=== PATIENT | female | born 1985 | race Caucasian/White ===

== ENCOUNTER 2017-01-13 19:19 | Emergency (ER) | payer OTHER ==
[2017-01-13] MEDS ORDERED: IPRATROPIUM-ALBUTEROL 3 ML NEB INHALATION STA (19:52)
[2017-01-13] MEDS ORDERED: methylPREDNISolone SOD SUCCI 125 MG/2 ML VIAL IM STA (19:52)
--- NOTE | 2017-01-13 20:13 | ED ---
SOB HPI - General Chief Complaint: Shortness of Breath Stated Complaint: ALEX Time Seen by Provider: 01/13/17 19:31 Source: patient, RN notes reviewed, old records reviewed Mode of arrival: ambulatory Limitations: no limitations - History of Present Illness Initial Comments: Patient is a 31-year-old female chief complaint of 1 week of cough and congestion. Patient reports that she's complete the Medrol Dosepak, Z-Joseph as well as an inhaler. She reports this is not helping of shortness of breath and cough. She states that she's had a productive cough. Patient denies any fever or chills. Patient denies any abdominal pain, she denies any chest pain. - Related Data Home Medications Medication Instructions Recorded Confirmed Medroxyprogesterone Acetate 150 mg IM Q90D 03/02/15 01/13/17 [Depo-Provera] Albuterol Inhaler [Ventolin Hfa 1 - 2 puff INHALATION RT-Q6H PRN 01/13/17 Inhaler] Dextroamphetamine Sulfate 15 mg PO BID 01/13/17 01/13/17 [Dexedrine] methylPREDNISolone Dose Pack See Taper PO DAILY 01/13/17 01/13/17 [Medrol Dose Pack] Previous Rx's Medication Instructions Recorded Levofloxacin [Levaquin] 750 mg PO DAILY #5 tab 01/13/17 Promethazine/Dextromethorphan 5 ml PO TID #120 ml 01/13/17 [Phenergan DM Syrup] predniSONE 50 mg PO DAILY #7 tab 01/13/17 Allergies Allergy/AdvReac Type Severity Reaction Status Date / Time amoxicillin Allergy Anaphylaxis Verified 01/13/17 19:40 Review of Systems ROS Statement: Those systems with pertinent positive or pertinent negative responses have been documented in the HPI. ROS Other: All systems not noted in ROS Statement are negative. Past Medical History Past Medical History: No Reported History History of Any Multi-Drug Resistant Organisms: None Reported Past Surgical History: Adenoidectomy, Ear Surgery, Tonsillectomy Past Psychological History: No Psychological Hx Reported Smoking Status: Former smoker Past Alcohol Use History: None Reported Past Drug Use History: None Reported General Exam - General Exam Comments Initial Comments: Well-appearing 31-year-old female. No distress. Limitations: no limitations General appearance: alert, in no apparent distress Head exam: Present: atraumatic, normocephalic, normal inspection Eye exam: Present: normal appearance, PERRL, EOMI. Absent: scleral icterus, conjunctival injection, periorbital swelling ENT exam: Present: normal exam, mucous membranes moist Neck exam: Present: normal inspection. Absent: tenderness, meningismus, lymphadenopathy Respiratory exam: Present: normal lung sounds bilaterally. Absent: respiratory distress, wheezes, rales, rhonchi, stridor Cardiovascular Exam: Present: regular rate, normal rhythm, normal heart sounds. Absent: systolic murmur, diastolic murmur, rubs, gallop, clicks GI/Abdominal exam: Present: soft, normal bowel sounds. Absent: distended, tenderness, guarding, rebound, rigid Extremities exam: Present: normal inspection, full ROM, normal capillary refill. Absent: tenderness, pedal edema, joint swelling, calf tenderness Back exam: Present: normal inspection Neurological exam: Present: alert, oriented X3, CN II-XII intact Psychiatric exam: Present: normal affect, normal mood Skin exam: Present: warm, dry, intact, normal color. Absent: rash Course Vital Signs 01/13/17 01/13/17 01/13/17 19:23 20:01 20:14 Temperature 98.4 F Pulse Rate 106 H 100 100 Respiratory 20 Rate Blood Pressure 158/94 O2 Sat by Pulse 96 Oximetry 01/13/17 20:54 Temperature 97.9 F Pulse Rate 92 Respiratory 18 Rate Blood Pressure 135/81 O2 Sat by Pulse 100 Oximetry Medical Decision Making - Medical Decision Making 31 year old female with cough and shortness of breath. PAtient reports that it is a productive cough.Xray is negative. PAtient reports improvement after douneb. Patient will be discharged with steroids and levaquin. Discussed follow up with PCP. Patient agrees with treatment plan and will comply. Disposition Clinical Impression: Shortness of breath, Cough Disposition: HOME SELF-CARE Condition: Good Instructions: Acute Bronchitis (ED) Additional Instructions: Patient is to rest, increase fluids. Follow-up with primary care provider within the next 2-3 days. Complete steroid prescription to use albuterol inhaler. Return to the emergency department if any alarming signs or symptoms occur. Prescriptions: Levofloxacin [Levaquin] 750 mg PO DAILY #5 tab Promethazine/Dextromethorphan [Phenergan DM Syrup] 5 ml PO TID #120 ml predniSONE 50 mg PO DAILY #7 tab Referrals: Milagros Catalan MD [Primary Care Provider] - 1-2 days Time of Disposition: 20:50
--- NOTE | 2017-01-13 20:39 | XR ---
EXAMINATION TYPE: XR chest 2V DATE OF EXAM: 01/13/2017 8:27 PM COMPARISON: NONE INDICATION: Shortness of breath, persistent cough x1 week TECHNIQUE: 2 view chest FINDINGS: The heart size is normal. The pulmonary vasculature is normal. The lungs are clear. IMPRESSION: 1. No acute pulmonary process.
[2017-01-13 20:56] VITALS: BP 135/81; PULSE 92; RESP 18; TEMP 97.9
== END 2017-01-13 21:04 | disposition home or self-care (01) ==
LOC: EC 19:19
DX: R06.02 Shortness of breath (principal); R05 Cough; R09.81 Nasal congestion; Z87.891 Personal history of nicotine dependence; Z79.899 Other long term (current) drug therapy; Z88.0 Allergy status to penicillin
CPT/HCPCS: 94640; 71020; 99285; 96372; J2930

== ENCOUNTER → 2017-03-02 | Outpatient (CLI) | payer OTHER ==
--- NOTE | 2017-03-03 08:10 | ECHOF ---
Referral Reason:I27.0 Pulmonary Hypertension MEASUREMENTS -------- HEIGHT: 162.6 cm WEIGHT: 79.4 kg BP: 153/94 RVIDd: 2.8 cm (< 3.3) IVSd: 1.3 cm (0.6 - 1.1) LVIDd: 3.9 cm (3.9 - 5.3) LVPWd: 1.1 cm (0.6 - 1.1) IVSs: 1.5 cm LVIDs: 2.3 cm LVPWs: 1.4 cm LAESV Index (A-L): 18.42 ml/m Ao Diam: 3.0 cm (2.0 - 3.7) AV Cusp: 1.2 cm (1.5 - 2.6) LA Diam: 2.3 cm (2.7 - 3.8) MV EXCURSION: 20.282 mm (> 18.000) MV EF SLOPE: 76 mm/s (70 - 150) EPSS: 0.6 cm MV E Francisco: 0.95 m/s MV DecT: 277 ms MV A Francisco: 0.67 m/s MV E/A Ratio: 1.42 RAP: 5.00 mmHg RVSP: 10.74 mmHg FINDINGS -------- Resting tachycardia (HR>100bpm). This was a technically adequate study. Pt. Very Sob There is borderline concentric left ventricular hypertrophy. Overall left ventricular systolic function is normal with, an EF between 60 - 65 %. The right ventricle is normal in size and function. Normal LA size by volume 22+/-6 ml/m2. The right atrium is normal in size. The aortic valve is trileaflet, and appears structurally normal. No aortic stenosis or regurgitation. The mitral valve leaflets are mildly thickened. There is trace mitral regurgitation. Trace tricuspid regurgitation present. There is no evidence of pulmonary hypertension. The right ventricular systolic pressure, as measured by Doppler, is 10.74mmHg. The pulmonic valve was not well visualized. The aortic root size is normal. Normal inferior vena cava with normal inspiratory collapse consistent with estimated right atrial pressure of 5 mmHg. The pericardium is normal. There is no pericardial effusion. CONCLUSIONS -------- 1. Resting tachycardia (HR>100bpm). 2. The right ventricular systolic pressure, as measured by Doppler, is 10.74mmHg. 3. The pulmonic valve was not well visualized. 4. The aortic root size is normal. 5. There is no pericardial effusion. 6. Pt. Very Sob 7. There is borderline concentric left ventricular hypertrophy. 8. Overall left ventricular systolic function is normal with, an EF between 60 - 65 %. 9. Normal LA size by volume 22+/-6 ml/m2. 10. The aortic valve is trileaflet, and appears structurally normal. No aortic stenosis or regurgitation. 11. There is trace mitral regurgitation. 12. Trace tricuspid regurgitation present. 13. There is no evidence of pulmonary hypertension. CONTENT DESIGNER: Kenney Arnold RDCS
== END | disposition home or self-care (01) ==
LOC: RADECHMAIN 15:39
PROVIDERS: ATTEND Internal Medicine Sleep Medicine
DX: I08.1 Rheumatic disorders of both mitral and tricuspid valves (principal); R00.0 Tachycardia, unspecified
CPT/HCPCS: 93306

== ENCOUNTER 2017-03-17 23:57 | Emergency (ER) | payer OTHER ==
[2017-03-18] MEDS ORDERED: SODIUM CHLORIDE 0.9% 1,000 ML IV STA (00:39)
[2017-03-18] MEDS ORDERED: IPRATROPIUM-ALBUTEROL 3 ML NEB INHALATION STA (00:39)
[2017-03-18] MEDS ORDERED: methylPREDNISolone SOD SUCCI 125 MG/2 ML VIAL IV STA ×2 (00:39→03:31)
[2017-03-18 01:27] LABS: Basophils % (A) 0 %; CH 33.2; CHCM 34.2; Eosinophils # (A) 0.1 k/uL (0-0.7); Eosinophils % (A) 1 %; HCT 43.2 % (34.0-46.0); HGB 14.3 gm/dL (11.4-16.0); Luc # (Auto) 0.18; Luc % (Auto) 1; Lymphocytes # (A) 3.6 k/uL (1.0-4.8); Lymphocytes % (A) 21 %; MCH 32.2 pg (25.0-35.0); MCV 97.7 fL (80.0-100.0); Mean Platelet Volume 7.2; Monocytes # (A) 0.5 k/uL (0-1.0); Monocytes % (A) 3 %; Neutrophils # (A) 13.2 k/uL (1.3-7.7); Neutrophils % (A) 75 %; RBC 4.42 m/uL (3.80-5.40); RDW 14.7 % (11.5-15.5); WBC 17.6 k/uL (3.8-10.6); WBC (Perox) 17.55
[2017-03-18 01:36] LABS: ALT 45 U/L (9-52); AST 21 U/L (14-36); Alkaline Phosphatase 58 U/L (38-126); Anion Gap 12 mmol/L; Blood Urea Nitrogen 15 mg/dL (7-17); Carbon Dioxide 20 mmol/L (22-30); Chloride 112 mmol/L (98-107); Glucose 104 mg/dL (74-99); Magnesium 2.1 mg/dL (1.6-2.3); Non-African American GFR(MDRD) >60 (>60 ml/min/1.73 sqM); Potassium 3.7 mmol/L (3.5-5.1); Sodium 144 mmol/L (137-145); Total Bilirubin 0.5 mg/dL (0.2-1.3); Total Protein 5.9 g/dL (6.3-8.2)
[2017-03-18 01:38] LABS: Partial Thromboplastin Time 21.4 sec (22.0-30.0)
--- NOTE | 2017-03-18 01:42 | ED ---
SOB HPI - General Chief Complaint: Shortness of Breath Stated Complaint: ALEX Time Seen by Provider: 03/18/17 00:33 Source: patient, RN notes reviewed, old records reviewed Mode of arrival: ambulatory Limitations: no limitations - History of Present Illness Initial Comments: Physical is a 32-year-old female presenting to emergency Department chief complaint of 3 months of shortness of breath. Patient reports she saw networking administrator and they told her she has severe inflammation on her lungs. She reports that the horse was to send her home with medications however they did not have the prescription sent. Patient reports that she uses Dulera inhaler, albuterol inhaler, and was prescribed to take 20 mg of prednisone for the next month. Patient ports that she has not been able to start. Patient denies any recent fever or chills. She reports that sometimes she coughs so severe that she did she pulled muscles in her lungs. Patient denies any abdominal pain or vomiting. She reports that sometimes she works that she becomes so short of breath. She reports she has a VQ scan scheduled on Sunday. Patient reports that sometimes she'll track her heart rate at work and it goes up to 1:30 to 160. - Related Data Home Medications Medication Instructions Recorded Confirmed Medroxyprogesterone Acetate 150 mg IM Q90D 03/02/15 01/13/17 [Depo-Provera] Albuterol Inhaler [Ventolin Hfa 1 - 2 puff INHALATION RT-Q6H PRN 01/13/17 Inhaler] Dextroamphetamine Sulfate 15 mg PO BID 01/13/17 01/13/17 [Dexedrine] methylPREDNISolone Dose Pack See Taper PO DAILY 01/13/17 01/13/17 [Medrol Dose Pack] Previous Rx's Medication Instructions Recorded Levofloxacin [Levaquin] 750 mg PO DAILY #5 tab 01/13/17 Promethazine/Dextromethorphan 5 ml PO TID #120 ml 01/13/17 [Phenergan DM Syrup] predniSONE 50 mg PO DAILY #7 tab 01/13/17 Azithromycin [Zithromax Z-pack] 250 mg PO DIRECTED #6 tab 03/18/17 Ipratropium-Albuterol Nebulize 3 ml INHALATION QID #20 neb 03/18/17 [Duoneb 0.5 mg-3 mg/3 ml Soln] Promethazine/Dextromethorphan 5 ml PO TID #120 ml 03/18/17 [Phenergan DM Syrup] predniSONE 10 mg PO BID #15 tab 03/18/17 Allergies Allergy/AdvReac Type Severity Reaction Status Date / Time amoxicillin Allergy Anaphylaxis Verified 03/18/17 00:04 Review of Systems ROS Statement: Those systems with pertinent positive or pertinent negative responses have been documented in the HPI. ROS Other: All systems not noted in ROS Statement are negative. Past Medical History Past Medical History: No Reported History History of Any Multi-Drug Resistant Organisms: None Reported Past Surgical History: Adenoidectomy, Ear Surgery, Tonsillectomy Past Psychological History: No Psychological Hx Reported Smoking Status: Former smoker Past Alcohol Use History: None Reported Past Drug Use History: None Reported General Exam - General Exam Comments Initial Comments: ill-appearing 32-year-old female. Limitations: no limitations General appearance: alert, in no apparent distress Head exam: Present: atraumatic, normocephalic, normal inspection Eye exam: Present: normal appearance, PERRL, EOMI. Absent: scleral icterus, conjunctival injection, periorbital swelling ENT exam: Present: normal exam, mucous membranes moist Neck exam: Present: normal inspection. Absent: tenderness, meningismus, lymphadenopathy Respiratory exam: Present: normal lung sounds bilaterally. Absent: respiratory distress, wheezes, rales, rhonchi, stridor Cardiovascular Exam: Present: regular rate, normal rhythm, normal heart sounds. Absent: systolic murmur, diastolic murmur, rubs, gallop, clicks GI/Abdominal exam: Present: soft, normal bowel sounds. Absent: distended, tenderness, guarding, rebound, rigid Extremities exam: Present: normal inspection, full ROM, normal capillary refill. Absent: tenderness, pedal edema, joint swelling, calf tenderness Back exam: Present: normal inspection Neurological exam: Present: alert, oriented X3, CN II-XII intact Psychiatric exam: Present: normal affect, normal mood Skin exam: Present: warm, dry, intact, normal color. Absent: rash Course Vital Signs 03/18/17 03/18/17 03/18/17 00:01 00:17 00:45 Temperature 98.4 F Pulse Rate 116 H 111 H 102 H Respiratory 20 18 Rate Blood Pressure 139/91 141/100 O2 Sat by Pulse 96 98 Oximetry 03/18/17 03/18/17 03/18/17 00:49 01:00 02:35 Temperature 100.0 F H Pulse Rate 108 H 111 H 74 Respiratory 22 16 Rate Blood Pressure 144/79 127/68 O2 Sat by Pulse 96 100 Oximetry 03/18/17 03:44 Temperature 97.9 F Pulse Rate 68 Respiratory 16 Rate Blood Pressure 124/60 O2 Sat by Pulse 97 Oximetry Medical Decision Making - Medical Decision Making Physical is a 32-year-old female presenting to emergency Department chief complaint of 3 months of shortness of breath. Patient reports she saw networking administrator and they told her she has severe inflammation on her lungs. She reports that the horse was to send her home with medications however they did not have the prescription sent. Patient reports that she uses Dulera inhaler, albuterol inhaler, and was prescribed to take 20 mg of prednisone for the next month. Patient ports that she has not been able to start. Patient's lab work was reviewed. She does have a elevated white blood cell count 17.6. Patient reports that she's been off of steroids for approximately 2 weeks and does not understand why this is related to that. Patient reports that she had blood work done a week ago which she was told everything was normal. Patient's blood work also showed elevated d-dimer of 0.142. Patient did receive the CT chest. Negative for any acute cardiopulmonary process. Chest x-ray was also clear. Patient will be discharged at this time with a dose of IV steroid, prescription for steroids and medications for her to put in her breathing treatment machine. Patient agrees to following up on Sunday with her networking administrator. Patient does have a scheduled VQ scan. Patient understands treatment plan will comply. Discussed this case with Dr. Shaikh. - Lab Data Result diagrams: 03/18/17 01:06 03/18/17 01:06 Lab Results 03/18/17 03/18/17 03/18/17 Range/Units 01:06 01:06 01:06 WBC 17.6 H (3.8-10.6) k/uL RBC 4.42 (3.80-5.40) m/uL Hgb 14.3 (11.4-16.0) gm/dL Hct 43.2 (34.0-46.0) % MCV 97.7 (80.0-100.0) fL MCH 32.2 (25.0-35.0) pg MCHC 33.0 (31.0-37.0) g/dL RDW 14.7 (11.5-15.5) % Plt Count 320 (150-450) k/uL Neutrophils % 75 % Lymphocytes % 21 % Monocytes % 3 % Eosinophils % 1 % Basophils % 0 % Neutrophils # 13.2 H (1.3-7.7) k/uL Lymphocytes # 3.6 (1.0-4.8) k/uL Monocytes # 0.5 (0-1.0) k/uL Eosinophils # 0.1 (0-0.7) k/uL Basophils # 0.0 (0-0.2) k/uL PT (9.0-12.0) sec INR (<1.1) APTT (22.0-30.0) sec D-Dimer (<0.60) mg/L FEU Sodium 144 (137-145) mmol/L Potassium 3.7 (3.5-5.1) mmol/L Chloride 112 H (98-107) mmol/L Carbon Dioxide 20 L (22-30) mmol/L Anion Gap 12 mmol/L BUN 15 (7-17) mg/dL Creatinine 0.70 (0.52-1.04) mg/dL Est GFR (MDRD) Af Amer >60 (>60 ml/min/1.73 sqM) Est GFR (MDRD) Non-Af >60 (>60 ml/min/1.73 sqM) Glucose 104 H (74-99) mg/dL Calcium 10.0 (8.4-10.2) mg/dL Magnesium 2.1 (1.6-2.3) mg/dL Total Bilirubin 0.5 (0.2-1.3) mg/dL AST 21 (14-36) U/L ALT 45 (9-52) U/L Alkaline Phosphatase 58 (38-126) U/L Total Creatine Kinase 84 (30-135) U/L CK-MB (CK-2) 2.4 (0.0-2.4) ng/mL CK-MB (CK-2) Rel Index 2.9 Troponin I <0.012 (0.000-0.034) ng/mL Total Protein 5.9 L (6.3-8.2) g/dL Albumin 3.9 (3.5-5.0) g/dL 03/18/17 Range/Units 01:06 WBC (3.8-10.6) k/uL RBC (3.80-5.40) m/uL Hgb (11.4-16.0) gm/dL Hct (34.0-46.0) % MCV (80.0-100.0) fL MCH (25.0-35.0) pg MCHC (31.0-37.0) g/dL RDW (11.5-15.5) % Plt Count (150-450) k/uL Neutrophils % % Lymphocytes % % Monocytes % % Eosinophils % % Basophils % % Neutrophils # (1.3-7.7) k/uL Lymphocytes # (1.0-4.8) k/uL Monocytes # (0-1.0) k/uL Eosinophils # (0-0.7) k/uL Basophils # (0-0.2) k/uL PT 10.0 (9.0-12.0) sec INR 1.0 (<1.1) APTT 21.4 L (22.0-30.0) sec D-Dimer 1.42 H (<0.60) mg/L FEU Sodium (137-145) mmol/L Potassium (3.5-5.1) mmol/L Chloride (98-107) mmol/L Carbon Dioxide (22-30) mmol/L Anion Gap mmol/L BUN (7-17) mg/dL Creatinine (0.52-1.04) mg/dL Est GFR (MDRD) Af Amer (>60 ml/min/1.73 sqM) Est GFR (MDRD) Non-Af (>60 ml/min/1.73 sqM) Glucose (74-99) mg/dL Calcium (8.4-10.2) mg/dL Magnesium (1.6-2.3) mg/dL Total Bilirubin (0.2-1.3) mg/dL AST (14-36) U/L ALT (9-52) U/L Alkaline Phosphatase (38-126) U/L Total Creatine Kinase (30-135) U/L CK-MB (CK-2) (0.0-2.4) ng/mL CK-MB (CK-2) Rel Index Troponin I (0.000-0.034) ng/mL Total Protein (6.3-8.2) g/dL Albumin (3.5-5.0) g/dL 03/18/17 02:14 EKG shows sinus rhythm with occasional PVCs. Ventricular rate is 94 bpm. FL interval 136 ms. QRS duration 96 ms. QT QTc is 352/440 ms. No evidence of ST elevation or T-wave inversion. - Radiology Data Radiology results: report reviewed CXR and CT angio are negative for any acute process. Disposition Clinical Impression: Shortness of breath Disposition: HOME SELF-CARE Condition: Good Instructions: Dyspnea (ED) Additional Instructions: Patient advised to follow-up with primary care provider. Continue to follow up with your networking administrator. Return to the emergency department if any alarming signs or symptoms occur. Prescriptions: Azithromycin [Zithromax Z-pack] 250 mg PO DIRECTED #6 tab Ipratropium-Albuterol Nebulize [Duoneb 0.5 mg-3 mg/3 ml Soln] 3 ml INHALATION QID #20 neb predniSONE 10 mg PO BID #15 tab Promethazine/Dextromethorphan [Phenergan DM Syrup] 5 ml PO TID #120 ml Referrals: Yoav Santiago MD [Primary Care Provider] - 1-2 days Time of Disposition: 03:28
[2017-03-18] MEDS ORDERED: RX INFO: IV CONTRAST WAS GIVEN 1 EACH MISC MISCELLANE PRN (01:43)
[2017-03-18] MEDS ORDERED: PROMETHAZ-COD 6.25-10 MG/5 ML 5 ML CUP PO STA (01:47)
--- NOTE | 2017-03-18 01:48 | XR ---
EXAM: XR Chest, 2 Views CLINICAL HISTORY: Reason: difficulty breathing TECHNIQUE: Frontal and lateral views of the chest. COMPARISON: Chest x-ray 01/11/2017. FINDINGS: Lungs: Unremarkable. No consolidation. Pleural space: Unremarkable. No pneumothorax. Heart: Unremarkable. No cardiomegaly. Mediastinum: Unremarkable. Bones/joints: Unremarkable. IMPRESSION: Normal chest x-rays.
[2017-03-18 02:02] LABS: Creatine Kinase 84 U/L (30-135)
[2017-03-18 02:15] LABS: Creatine Kinase MB 2.4 ng/mL (0.0-2.4); Troponin I <0.012 ng/mL (0.000-0.034)
[2017-03-18 02:36] VITALS: RESP 16
--- NOTE | 2017-03-18 03:11 | CT ---
EXAM: CT Angiography Chest With Intravenous Contrast CLINICAL HISTORY: Reason: Pain TECHNIQUE: Axial computed tomographic angiography images of the chest with intravenous contrast using pulmonary embolism protocol. CTDI is 10.50 mGy and DLP is 410 mGy-cm. This CT exam was performed using one or more of the following dose reduction techniques: automated exposure control, adjustment of the mA and/or kV according to patient size, and/or use of iterative reconstruction technique. MIP reconstructed images were created and reviewed. COMPARISON: CT chest 03/02/2016. FINDINGS: Pulmonary arteries: Unremarkable. No pulmonary embolism. Aorta: No acute findings. No thoracic aortic aneurysm. Lungs: Unremarkable. No mass. No consolidation. Pleural space: Unremarkable. No significant effusion. No pneumothorax. Heart: Unremarkable. No cardiomegaly. No significant pericardial effusion. No evidence of RV dysfunction. Bones/joints: Trace retrosternal air likely related to bilateral sternoclavicular joint air. Unchanged T4 superior endplate irregularity/Schmorl's node. No acute fracture. No dislocation. Soft tissues: Unremarkable. Lymph nodes: Small mediastinal and right hilar lymph nodes. Stomach and bowel: Diverticulosis. IMPRESSION: No acute cardiopulmonary process.
[2017-03-18 03:45] VITALS: BP 124/60; PULSE 68; TEMP 97.9
== END 2017-03-18 03:44 | disposition home or self-care (01) ==
LOC: EC 23:57
DX: J98.4 Other disorders of lung (principal); R06.02 Shortness of breath; R79.1 Abnormal coagulation profile; D72.829 Elevated white blood cell count, unspecified; Z87.891 Personal history of nicotine dependence; Z79.899 Other long term (current) drug therapy; Z79.52 Long term (current) use of systemic steroids; Z88.0 Allergy status to penicillin
CPT/HCPCS: 36415; 94640; 93005; 85379; 80053; 82550; 82553; 83735; 84484; 85025; 85610; 85730; 71020; 71275; 99285; 96374; 96361 ×3; J2930; Q9967

== ENCOUNTER → 2017-03-19 | Outpatient (CLI) | payer OTHER ==
--- NOTE | 2017-03-19 13:17 | XR ---
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 REFERENCE: Previous study dated 03/18/2017. FINDINGS: The lungs are clear. Pleural spaces are clear. Heart size is normal. IMPRESSION: NORMAL CHEST.
--- NOTE | 2017-03-19 15:56 | NM ---
EXAMINATION TYPE: NM pul vent and perfuse DATE OF EXAM: 03/19/2017 COMPARISON: Chest x-ray 03/19/2017 HISTORY: I 74.9, embolism and thrombosis TECHNIQUE: Utilizing inhalation of 71.1 mCi Tc 99m DTPA aerosol and intravenous injection of 5.5 mCi of Tc 99m MAA, ventilation and perfusion images are acquired post injection in multiple projections. FINDINGS: Normal radiotracer distribution is noted in the lungs. There is no evidence of mismatched defects. IMPRESSION: Normal ventilation/perfusion scan
== END | disposition home or self-care (01) ==
LOC: RADNMMAIN 12:45
PROVIDERS: ATTEND Internal Medicine Sleep Medicine
DX: I74.9 Embolism and thrombosis of unspecified artery (principal)
CPT/HCPCS: 71020; 78582; A9540; A9567

== ENCOUNTER 2017-05-05 17:48 | Emergency (ER) | payer OTHER ==
[2017-05-05] MEDS ORDERED: IPRATROPIUM-ALBUTEROL 3 ML NEB INHALATION STA (18:05)
[2017-05-05] MEDS ORDERED: SODIUM CHLORIDE 0.9% 500 ML IV STA (18:05)
[2017-05-05] MEDS ORDERED: methylPREDNISolone SOD SUCCI 125 MG/2 ML VIAL IV STA (18:05)
--- NOTE | 2017-05-05 18:17 | ED ---
General Adult HPI - General Chief complaint: Shortness of Breath Stated complaint: Difficulty breathing; hx of asthma Time Seen by Provider: 05/05/17 18:01 Source: patient, RN notes reviewed Mode of arrival: ambulatory Limitations: no limitations - History of Present Illness Initial comments: 32 yo female presents to the ER with cc of SOB. Patient states that she's ever child has a. Patient states that she sees a coil winder repair. Patient states that she was on antibiotics about 2 or 3 weeks ago with steroids. Patient states that she just never got better. Patient states that initially flared up a few months ago when she had bronchitis and pneumonia. Patient states that she does breathing treatments every 4 hours. Patient states that she just does not feel like she is getting better she still so short of breath with tightness so she thought that she should be evaluated. Patient denies any fever chills. Patient is to mild cough with this. Patient denies any recent chest pain, back pain, abdominal pain, nausea vomiting, numbness or tingling, dysuria or hematuria, constipation or diarrhea, headaches or visual changes, or any other current symptoms. - Related Data Home Medications Medication Instructions Recorded Confirmed Medroxyprogesterone Acetate 150 mg IM Q90D 03/02/15 05/05/17 [Depo-Provera] Albuterol Inhaler [Ventolin Hfa 1 - 2 puff INHALATION RT-Q6H PRN 01/13/17 Inhaler] Dextroamphetamine Sulfate 15 mg PO BID 01/13/17 05/05/17 [Dexedrine] Ipratropium-Albuterol Nebulize 3 ml INHALATION RT-QID 05/05/17 05/05/17 [Duoneb 0.5 mg-3 mg/3 ml Soln] Mometasone/Formoterol [Dulera 200 2 puff INHALATION RT-BID 05/05/17 05/05/17 Mcg/5 Mcg Inhaler] Montelukast [Singulair] 10 mg PO DAILY 05/05/17 05/05/17 Previous Rx's Medication Instructions Recorded Levofloxacin [Levaquin] 750 mg PO DAILY #7 tab 05/05/17 predniSONE 50 mg PO DAILY #5 tab 05/05/17 Allergies Allergy/AdvReac Type Severity Reaction Status Date / Time amoxicillin Allergy Anaphylaxis Verified 05/05/17 18:08 Review of Systems ROS Statement: Those systems with pertinent positive or pertinent negative responses have been documented in the HPI. ROS Other: All systems not noted in ROS Statement are negative. Past Medical History Past Medical History: Asthma History of Any Multi-Drug Resistant Organisms: None Reported Past Surgical History: Adenoidectomy, Ear Surgery, Tonsillectomy Past Psychological History: No Psychological Hx Reported Smoking Status: Former smoker Past Alcohol Use History: None Reported Past Drug Use History: None Reported General Exam - General Exam Comments Initial Comments: General: The patient is awake and alert, in no distress, and does not appear acutely ill. Eye: Pupils are equal, round and reactive to light, extra-ocular movements are intact; there is normal conjunctiva bilaterally. No signs of icterus. Ears, nose, mouth and throat: There are moist mucous membranes and no oral lesions. Neck: The neck is supple, there is no tenderness. Cardiovascular: There is a regular rate and rhythm. No murmur, rub or gallop is appreciated. Respiratory: Lungs are clear to auscultation, respirations are non-labored, breath sounds are equal. No wheezes, stridor, rales, or rhonchi. Gastrointestinal: Soft, non-distended, non-tender abdomen without masses or organomegaly noted. There is no rebound or guarding present. No CVA tenderness. Bowel sounds are unremarkable. Back: There is no tenderness to palpation in the midline. There is no obvious deformity. No rashes noted. Musculoskeletal: Normal ROM, no tenderness, There is no pedal edema. There is no calf tenderness or swelling. Sensation intact. Pulses equal bilaterally 2+. Neurological: CN II-XII intact, There are no obvious motor or sensory deficits. Coordination appears grossly intact. Speech is normal. Skin: Skin is warm and dry and no rashes or lesions are noted. Psychiatric: Cooperative, appropriate mood & affect, normal judgment. Limitations: no limitations Course Vital Signs 05/05/17 05/05/17 05/05/17 17:57 18:10 18:21 Temperature 100.3 F H Pulse Rate 131 H 104 H 108 H Respiratory 18 Rate Blood Pressure 155/91 O2 Sat by Pulse 98 Oximetry Medical Decision Making - Medical Decision Making 32 yo female presents with SOB. At this time chest x-ray lab work and CT are reviewed. Patient does appear to have an elevated white count. At this time patient there is concern for an infection on CT. We'll start patient Levaquin and steroids for home. We discussed continuing the breathing treatments and close follow-up with her coil winder repair. We discussed return parameters and all of the patient's questions. She states that she understands she is agreeable plan. She states she is feeling much better at this time. This time the patient will be discharged home. - Lab Data Result diagrams: 05/05/17 18:15 05/05/17 18:15 Lab Results 05/05/17 05/05/17 05/05/17 Range/Units 18:00 18:15 18:15 WBC 20.2 H (3.8-10.6) k/uL RBC 4.42 (3.80-5.40) m/uL Hgb 15.0 (11.4-16.0) gm/dL Hct 41.2 (34.0-46.0) % MCV 93.3 (80.0-100.0) fL MCH 34.0 (25.0-35.0) pg MCHC 36.4 (31.0-37.0) g/dL RDW 12.5 (11.5-15.5) % Plt Count 412 (150-450) k/uL Neutrophils % 75 % Lymphocytes % 20 % Monocytes % 3 % Eosinophils % 1 % Basophils % 0 % Neutrophils # 15.1 H (1.3-7.7) k/uL Lymphocytes # 4.0 (1.0-4.8) k/uL Monocytes # 0.7 (0-1.0) k/uL Eosinophils # 0.1 (0-0.7) k/uL Basophils # 0.1 (0-0.2) k/uL D-Dimer 2.03 H (<0.60) mg/L FEU Sodium 142 (137-145) mmol/L Potassium 3.9 (3.5-5.1) mmol/L Chloride 110 H (98-107) mmol/L Carbon Dioxide 16 L (22-30) mmol/L Anion Gap 16 mmol/L BUN 16 (7-17) mg/dL Creatinine 0.80 (0.52-1.04) mg/dL Est GFR (MDRD) Af Amer >60 (>60 ml/min/1.73 sqM) Est GFR (MDRD) Non-Af >60 (>60 ml/min/1.73 sqM) Glucose 73 L (74-99) mg/dL Plasma Lactic Acid Camilo (0.7-2.0) mmol/L Calcium 10.1 (8.4-10.2) mg/dL Total Bilirubin 0.8 (0.2-1.3) mg/dL AST 22 (14-36) U/L ALT 42 (9-52) U/L Alkaline Phosphatase 90 (38-126) U/L Total Protein 6.3 (6.3-8.2) g/dL Albumin 4.2 (3.5-5.0) g/dL Urine Color Urine Appearance (Clear) Urine pH (5.0-8.0) Ur Specific [place] (1.001-1.035) Urine Protein (Negative) Urine Glucose (UA) (Negative) Urine Ketones (Negative) Urine Blood (Negative) Urine Nitrite (Negative) Urine Bilirubin (Negative) Urine Urobilinogen (<2.0) mg/dL Ur Leukocyte Esterase (Negative) Urine RBC (0-5) /hpf Urine WBC (0-5) /hpf Ur Squamous Epith Cells (0-4) /hpf Urine Mucus (None) /hpf Urine HCG, Qual (Not Detectd) 05/05/17 05/05/17 05/05/17 Range/Units 18:15 18:25 18:25 WBC (3.8-10.6) k/uL RBC (3.80-5.40) m/uL Hgb (11.4-16.0) gm/dL Hct (34.0-46.0) % MCV (80.0-100.0) fL MCH (25.0-35.0) pg MCHC (31.0-37.0) g/dL RDW (11.5-15.5) % Plt Count (150-450) k/uL Neutrophils % % Lymphocytes % % Monocytes % % Eosinophils % % Basophils % % Neutrophils # (1.3-7.7) k/uL Lymphocytes # (1.0-4.8) k/uL Monocytes # (0-1.0) k/uL Eosinophils # (0-0.7) k/uL Basophils # (0-0.2) k/uL D-Dimer (<0.60) mg/L FEU Sodium (137-145) mmol/L Potassium (3.5-5.1) mmol/L Chloride (98-107) mmol/L Carbon Dioxide (22-30) mmol/L Anion Gap mmol/L BUN (7-17) mg/dL Creatinine (0.52-1.04) mg/dL Est GFR (MDRD) Af Amer (>60 ml/min/1.73 sqM) Est GFR (MDRD) Non-Af (>60 ml/min/1.73 sqM) Glucose (74-99) mg/dL Plasma Lactic Acid Camilo 1.3 (0.7-2.0) mmol/L Calcium (8.4-10.2) mg/dL Total Bilirubin (0.2-1.3) mg/dL AST (14-36) U/L ALT (9-52) U/L Alkaline Phosphatase (38-126) U/L Total Protein (6.3-8.2) g/dL Albumin (3.5-5.0) g/dL Urine Color Yellow Urine Appearance Clear (Clear) Urine pH 6.0 (5.0-8.0) Ur Specific [place] 1.026 (1.001-1.035) Urine Protein Trace H (Negative) Urine Glucose (UA) Negative (Negative) Urine Ketones 3+ H (Negative) Urine Blood Small H (Negative) Urine Nitrite Negative (Negative) Urine Bilirubin Negative (Negative) Urine Urobilinogen <2.0 (<2.0) mg/dL Ur Leukocyte Esterase Negative (Negative) Urine RBC 11 H (0-5) /hpf Urine WBC 1 (0-5) /hpf Ur Squamous Epith Cells 1 (0-4) /hpf Urine Mucus Occasional H (None) /hpf Urine HCG, Qual Not Detected (Not Detectd) - Radiology Data Radiology results: report reviewed, image reviewed Disposition Clinical Impression: Pneumonitis Disposition: HOME SELF-CARE Condition: Stable Instructions: Pneumonitis (ED) Additional Instructions: Please use medication as discussed. Please follow up with family doctor if symptoms have not improved over the next two days. Please return to the emergency room if your symptoms increase or worsen or for any other concerns. Prescriptions: Levofloxacin [Levaquin] 750 mg PO DAILY #7 tab predniSONE 50 mg PO DAILY #5 tab Referrals: Yoav Santiago MD [Primary Care Provider] - 1-2 days Time of Disposition: 19:51
[2017-05-05 18:33] LABS: Basophils # (A) 0.1 k/uL (0-0.2); Basophils % (A) 0 %; CH 33.3; CHCM 35.8; Eosinophils # (A) 0.1 k/uL (0-0.7); Eosinophils % (A) 1 %; HCT 41.2 % (34.0-46.0); HDW 2.44; Luc # (Auto) 0.24; Luc % (Auto) 1; Lymphocytes % (A) 20 %; MCHC 36.4 g/dL (31.0-37.0); MCV 93.3 fL (80.0-100.0); Mean Platelet Volume 7.3; Monocytes # (A) 0.7 k/uL (0-1.0); Monocytes % (A) 3 %; Neutrophils # (A) 15.1 k/uL (1.3-7.7); Neutrophils % (A) 75 %; RBC 4.42 m/uL (3.80-5.40); RDW 12.5 % (11.5-15.5); WBC 20.2 k/uL (3.8-10.6)
[2017-05-05 18:45] LABS: ALT 42 U/L (9-52); AST 22 U/L (14-36); Alkaline Phosphatase 90 U/L (38-126); Anion Gap 16 mmol/L; Blood Urea Nitrogen 16 mg/dL (7-17); Calcium 10.1 mg/dL (8.4-10.2); Carbon Dioxide 16 mmol/L (22-30); Chloride 110 mmol/L (98-107); Glucose 73 mg/dL (74-99); Non-African American GFR(MDRD) >60 (>60 ml/min/1.73 sqM); Potassium 3.9 mmol/L (3.5-5.1); Sodium 142 mmol/L (137-145); Total Bilirubin 0.8 mg/dL (0.2-1.3); Total Protein 6.3 g/dL (6.3-8.2)
[2017-05-05] MEDS ORDERED: RX INFO: IV CONTRAST WAS GIVEN 1 EACH MISC MISCELLANE PRN (18:56)
[2017-05-05 18:59] LABS: Appearance,Urine Clear (Clear); Bilirubin,Urine Negative (Negative); Glucose,Urine (UA) Negative (Negative); Ketones,Urine 3+ (Negative); Leukocyte Esterase,Urine Negative (Negative); Mucus,Urine Occasional /hpf; Nitrite,Urine Negative (Negative); Particle Count 3362; Protein,Urine Trace (Negative); RBC,Urine 11 /hpf (0-5); Specific Gravity,Urine 1.026 (1.001-1.035); Squamous Epithelial Cell,Urine 1 /hpf (0-4); UA Billing (MACRO vs. MICRO) MICRO; Urobilinogen,Urine <2.0 mg/dL (<2.0); WBC,Urine 1 /hpf (0-5)
--- NOTE | 2017-05-05 19:24 | XR ---
EXAMINATION TYPE: XR chest 2V DATE OF EXAM: 05/05/2017 COMPARISON: 03/19/2017 HISTORY: 32-year-old female with cough and shortness of breath TECHNIQUE: PA and lateral views FINDINGS: The cardiomediastinal silhouette, aorta, and pulmonary vasculature are within normal limits. Mild dif fuse interstitial prominence. Suggestion of some peribronchial cuffing. Otherwise, lungs and pleural spaces are clear. IMPRESSION: Interstitial changes could reflect bronchitis or chronic asthma. Otherwise, no acute process seen.
--- NOTE | 2017-05-05 19:44 | CT ---
EXAMINATION TYPE: CT angio chest DATE OF EXAM: 05/05/2017 COMPARISON: 03/18/2017 HISTORY: 32-year-old female with difficulty breathing, elevated d-dimer and history of asthma. TECHNIQUE: Contiguous axial scanning of the chest performed with IV Contrast, patient injected with 7 3 mL of Omnipaque 350. Coronal/sagittal MIP reconstructions performed. CT DLP: 432.80 mGycm Automated exposure control for dose reduction was used. FINDINGS: The heart is normal size with trace pericardial thickening/fluid. Aorta is normal caliber with bovine configuration to the aortic arch. Scattered nonenlarged mediastinal lymph nodes. There is suboptimal opacification of the pulmonary arterial system. No large central pulmonary embolu s is identified. Otherwise, the exam is largely nondiagnostic for assessment of embolus. Evaluation of the lungs shows mild diffuse bronchial wall thickening. A few scattered patches of grou ndglass are present in the peribronchovascular and subpleural distribution especially at the mid lung level. No consolidation or pleural effusion. Visualized upper abdomen shows colonic diverticulosis. Bones: No acute osseous remodeling seen. IMPRESSION: 1. EXAM LARGELY NONDIAGNOSTIC FOR ASSESSMENT OF PULMONARY EMBOLUS. NO LARGE CENTRAL EMBOLUS. 2. MILD DIFFUSE BRONCHIAL WALL THICKENING COULD REPRESENT BRONCHITIS OR CHRONIC ASTHMA. 3. IN ADDITION, THERE ARE SCATTERED PATCHES OF PERIBRONCHOVASCULAR AND SUBPLEURAL GROUNDGLASS ESPECIA LLY IN THE MID LUNGS. SMALL INFECTIOUS/INFLAMMATORY FOCI ARE SUGGESTED. CORRELATE FOR ETIOLOGIES SUCH MACHINE STAKER OR HYPERSENSITIVITY PNEUMONITIS.
[2017-05-05 20:05] VITALS: BP 138/79; PULSE 119; RESP 16; TEMP 98.4
== END 2017-05-05 20:10 | disposition home or self-care (01) ==
LOC: EC 17:48
DX: J18.9 Pneumonia, unspecified organism (principal); J45.909 Unspecified asthma, uncomplicated; Z87.891 Personal history of nicotine dependence; Z79.51 Long term (current) use of inhaled steroids; Z79.899 Other long term (current) drug therapy; Z88.0 Allergy status to penicillin
CPT/HCPCS: 36415; 94640; 85379; 80053; 83605; 85025; 81001; 81025; 87040; 71020; 71275; 99285; 96374; 96361 ×2; J2930; Q9967

== ENCOUNTER 2017-06-07 12:56 | Day surgery (SDC) | payer OTHER ==
[2017-06-05 14:26] VITALS: BMI 32.5
[~2017-06-07 12:56] MED LIST: LACTATED RINGERS 1,000 ML IV SCH; LIDOCAINE 1% 20 ML VIAL (10MG/ML) FOR IV START INTRADERMA PRN
[2017-06-07 13:20] VITALS: TEMP 98.4
[2017-06-07] MEDS ORDERED: LIDOCAINE 1% INJ 10MG/ML (20 ML MDV) ONE (13:46)
[2017-06-07] MEDS ORDERED: fentaNYL (PF) 50 MCG/ML 2 ML AMP ONE (13:46)
[2017-06-07] MEDS ORDERED: MIDAZOLAM 2 MG/2 ML VIAL ONE (13:46)
[2017-06-07] MEDS ORDERED: PROPOFOL 10 MG/ML 20 ML VIAL IV ONE (13:46)
[2017-06-07] MEDS ORDERED: LIDOCAINE 2% INJ 20 MG/ML INTRATRACH ONE (14:19)
--- NOTE | 2017-06-07 14:39 | FL ---
EXAMINATION TYPE: FL bronchoscopy DATE OF EXAM: 06/07/2017 CLINICAL HISTORY: Fluoroscopy TECHNIQUE: Fluoroscopy. COMPARISON: None. FINDINGS: Fluoroscopic guidance was provided during procedure. A total of 11 seconds of fluoroscopi c time was utilized during the procedure and spot images was acquired. IMPRESSION: As Above.
[2017-06-07 14:52] VITALS: BP 119/72; PULSE 83; RESP 18
--- NOTE | 2017-06-07 14:53 | XR ---
EXAMINATION TYPE: XR chest 1V DATE OF EXAM: 06/07/2017 COMPARISON: 05/05/2017 HISTORY: Post bronchoscopy TECHNIQUE: Single frontal view of the chest is obtained. FINDINGS: There is no focal air space opacity, pleural effusion, or pneumothorax seen. The cardiac silhouette size is within normal limits. The osseous structures are intact. Pleural-based thickenin g on the left is stable. There may be a chronic rib deformity in the region. IMPRESSION: 1. Pleural-based thickening chronic rib deformity on the left with no evidence of pneumothorax or acu te process.
--- NOTE | 2017-06-07 15:48 | P.PCN ---
Date of Procedure: 06/07/17 Preoperative Diagnosis: #1 pneumonia #2 bilateral groundglass infiltrate #3 pulmonary sarcoidosis Postoperative Diagnosis: As above Procedure(s) Performed: Bronchoscopy Bronchoalveolar lavage of the right upper lobe, right lower lobe, left lower lobe Transbronchial lung biopsy of the right lower lobe Surgeon: Yoav Santiago Estimated Blood Loss (ml): 20 Condition: stable Disposition: same day Indications for Procedure: Cough shortness of breath going on for 4-6 months, bilateral groundglass attenuation on computed tomography scan of the chest, suspect pulmonary sarcoidosis Operative Findings: As below Description of Procedure: prepared and draped in the usual fashion, for anesthesia and details please effort to the anesthesia note, fiberoptic bronchoscope was passed through the right nares, mildly red team edema on the upper airway as well as laryngeal area was noted, patient had episodes of coughing throughout the procedure vocal cords were mildly inflamed tip of the scope was has been on the vocal cords into trachea diffuse right edema and edema of the tracheobronchial tree bilaterally was noted along with very thick tenacious mucoid light purulent secretions were seen in the form mucous plug which was sudden been clean, BAL was performed from the right lower lobe left lower lobe and right upper lobe pulmonary toilet and suctioning was performed. After the bronchoalveolar lavage tip of the scope was wedged into the right lower lobe nasal segment appendectomy with Nori was given under fluoroscopy guidance multiple transbronchial lung biopsies were obtained from the right lower lobe patient tolerated procedure well no complication noted
[2017-06-07 22:01] LABS: RBC, Body Fluid 845 /uL
[2017-06-15 14:17] LABS: Mis test requested (Non-blood) Pneumo. jirovecii
[2017-06-18 10:23] LABS: Mis test requested (Non-blood) Legionella Culture
== END 2017-06-07 15:11 | disposition home or self-care (01) ==
LOC: ORWHC2ENDO 12:56
PROVIDERS: ATTEND Internal Medicine Sleep Medicine
DX: J18.9 Pneumonia, unspecified organism (principal); R91.8 Other nonspecific abnormal finding of lung field; D86.9 Sarcoidosis, unspecified; J45.909 Unspecified asthma, uncomplicated; F90.9 Attention-deficit hyperactivity disorder, unspecified type; F17.200 Nicotine dependence, unspecified, uncomplicated; Z79.899 Other long term (current) drug therapy; Z88.1 Allergy status to other antibiotic agents
CPT/HCPCS: 87081; 88108; 88305; 88184; 88185; 89050; 87252; 87798; 87070; 87205; 87116; 87102; 87206; 71010; 31628; 31624; J2001 ×2; J2250; J3010; J2704; 31625

== ENCOUNTER 2017-07-15 10:37 | Emergency (ER) | payer OTHER ==
[2017-07-15] MEDS ORDERED: SODIUM CHLORIDE 0.9% 1,000 ML IV STA (11:48)
[2017-07-15] MEDS ORDERED: methylPREDNISolone SOD SUCCI 125 MG/2 ML VIAL IV STA (11:48)
--- NOTE | 2017-07-15 11:52 | ED ---
URI HPI - General Chief Complaint: Upper Respiratory Infection Stated Complaint: SOB Time Seen by Provider: 07/15/17 11:30 Source: patient, RN notes reviewed Mode of arrival: ambulatory Limitations: no limitations - History of Present Illness Initial Comments: This is a 32-year-old female with a history of a chronic cough for the past 6 months after having pneumonia. Who had a bronchoscopy with biopsy done 6 weeks ago with results still pending who presents today with the onset of fever last night cough shortness of breath minimal improvement with her home inhalers. Also some right-sided chest pain. The pain is vague and nondescript. His reproducible cough and some deep breathing. Also of note patient does state that she has a chronically elevated d-dimer. She states she has chest discomfort with tightness. No other symptoms at this time. She states that she does not smoke anymore. She is a former smoker. No prior history of pulmonary embolus or DVT. MD Complaint: fever, cough, other - Related Data Home Medications Medication Instructions Recorded Confirmed Medroxyprogesterone Acetate 150 mg IM Q90D 03/02/15 07/15/17 [Depo-Provera] Dextroamphetamine Sulfate 15 mg PO BID 01/13/17 07/15/17 [Dexedrine] Ipratropium-Albuterol Nebulize 3 ml INHALATION RT-QID 05/05/17 07/15/17 [Duoneb 0.5 mg-3 mg/3 ml Soln] Mometasone/Formoterol [Dulera 200 2 puff INHALATION RT-BID 05/05/17 07/15/17 Mcg/5 Mcg Inhaler] Montelukast [Singulair] 10 mg PO DAILY 05/05/17 07/15/17 Budesonide [Pulmicort] 0.5 mg INHALATION RT-BID 07/15/17 07/15/17 Previous Rx's Medication Instructions Recorded Azithromycin [Zithromax Z-pack] 250 mg PO DIRECTED #6 tab 07/15/17 Benzonatate [Tessalon Perles] 100 mg PO TID PRN #20 capsule 07/15/17 predniSONE 20 mg PO BID #10 tab 07/15/17 Allergies Allergy/AdvReac Type Severity Reaction Status Date / Time amoxicillin Allergy Anaphylaxis Verified 07/15/17 13:44 Review of Systems ROS Statement: Those systems with pertinent positive or pertinent negative responses have been documented in the HPI. ROS Other: All systems not noted in ROS Statement are negative. Past Medical History Past Medical History: Asthma History of Any Multi-Drug Resistant Organisms: None Reported Past Surgical History: Adenoidectomy, Ear Surgery, Tonsillectomy Past Anesthesia/Blood Transfusion Reactions: No Reported Reaction Past Psychological History: ADD/ADHD Smoking Status: Former smoker - Past Family History Mother Family Medical History: No Reported History General Exam - General Exam Comments Initial Comments: This is a well-developed well-nourished awake alert oriented 3 female Limitations: no limitations General appearance: alert, in no apparent distress Head exam: Present: atraumatic, normocephalic, normal inspection Eye exam: Present: normal appearance, PERRL, EOMI. Absent: scleral icterus, conjunctival injection, periorbital swelling ENT exam: Present: normal exam, mucous membranes moist Neck exam: Present: normal inspection. Absent: tenderness, meningismus, lymphadenopathy Respiratory exam: Present: decreased breath sounds. Absent: respiratory distress, wheezes, rales, rhonchi, stridor, chest wall tenderness Cardiovascular Exam: Present: regular rate, normal rhythm, normal heart sounds. Absent: systolic murmur, diastolic murmur, rubs, gallop, clicks GI/Abdominal exam: Present: soft, normal bowel sounds. Absent: distended, tenderness, guarding, rebound, rigid Extremities exam: Present: normal inspection, full ROM, normal capillary refill. Absent: tenderness, pedal edema, joint swelling, calf tenderness Back exam: Present: normal inspection Neurological exam: Present: alert, oriented X3, CN II-XII intact Psychiatric exam: Present: normal affect, normal mood Skin exam: Present: warm, dry, intact, normal color. Absent: rash Course Vital Signs 07/15/17 07/15/17 07/15/17 10:50 12:04 12:12 Temperature 97.6 F Pulse Rate 91 98 106 H Respiratory 18 Rate Blood Pressure 141/87 O2 Sat by Pulse 100 Oximetry 07/15/17 13:46 Temperature Pulse Rate 100 Respiratory 16 Rate Blood Pressure 130/86 O2 Sat by Pulse 98 Oximetry Medical Decision Making - Medical Decision Making I did discuss the findings with the patient. She has had workups in the past for pulmonary embolism which are negative. She had a VQ scan also she states. No evidence of pneumonia. Patient will be discharged with instruction follow- up with Dr. Santiago . She has an appointment to see him in about 2 weeks I did suggest she call tomorrow and get an appointment to see him sooner. There is concern that she may have sarcoidosis. Be discharged on antibiotic oral steroids she does have the appropriate inhalers at home already. Also a cough medication. We did discuss the elevated d-dimer though it is much improved from the previous one from previous workups have been negative for PE at this time she does not feel this is indicated and it is likely not. - Lab Data Result diagrams: 07/15/17 12:10 07/15/17 12:10 Lab Results 07/15/17 07/15/17 07/15/17 Range/Units 12:10 12:10 12:10 WBC 12.9 H (3.8-10.6) k/uL RBC 4.31 (3.80-5.40) m/uL Hgb 13.6 (11.4-16.0) gm/dL Hct 42.4 (34.0-46.0) % MCV 98.2 (80.0-100.0) fL MCH 31.5 (25.0-35.0) pg MCHC 32.1 (31.0-37.0) g/dL RDW 13.6 (11.5-15.5) % Plt Count 413 (150-450) k/uL Neutrophils % 70 % Lymphocytes % 23 % Monocytes % 4 % Eosinophils % 1 % Basophils % 0 % Neutrophils # 9.0 H (1.3-7.7) k/uL Lymphocytes # 3.0 (1.0-4.8) k/uL Monocytes # 0.5 (0-1.0) k/uL Eosinophils # 0.2 (0-0.7) k/uL Basophils # 0.1 (0-0.2) k/uL PT (9.0-12.0) sec INR (<1.2) APTT (22.0-30.0) sec D-Dimer (<0.60) mg/L FEU Sodium 138 (137-145) mmol/L Potassium 4.2 (3.5-5.1) mmol/L Chloride 110 H (98-107) mmol/L Carbon Dioxide 17 L (22-30) mmol/L Anion Gap 11 mmol/L BUN 14 (7-17) mg/dL Creatinine 0.72 (0.52-1.04) mg/dL Est GFR (MDRD) Af Amer >60 (>60 ml/min/1.73 sqM) Est GFR (MDRD) Non-Af >60 (>60 ml/min/1.73 sqM) Glucose 82 (74-99) mg/dL Calcium 9.6 (8.4-10.2) mg/dL Magnesium 2.1 (1.6-2.3) mg/dL Total Bilirubin 0.4 (0.2-1.3) mg/dL AST 18 (14-36) U/L ALT 34 (9-52) U/L Alkaline Phosphatase 81 (38-126) U/L Total Creatine Kinase 118 (30-135) U/L CK-MB (CK-2) 2.2 (0.0-2.4) ng/mL CK-MB (CK-2) Rel Index 1.9 Troponin I <0.012 (0.000-0.034) ng/mL NT-Pro-B Natriuret Pep pg/mL Total Protein 6.4 (6.3-8.2) g/dL Albumin 4.1 (3.5-5.0) g/dL 07/15/17 07/15/17 Range/Units 12:10 12:10 WBC (3.8-10.6) k/uL RBC (3.80-5.40) m/uL Hgb (11.4-16.0) gm/dL Hct (34.0-46.0) % MCV (80.0-100.0) fL MCH (25.0-35.0) pg MCHC (31.0-37.0) g/dL RDW (11.5-15.5) % Plt Count (150-450) k/uL Neutrophils % % Lymphocytes % % Monocytes % % Eosinophils % % Basophils % % Neutrophils # (1.3-7.7) k/uL Lymphocytes # (1.0-4.8) k/uL Monocytes # (0-1.0) k/uL Eosinophils # (0-0.7) k/uL Basophils # (0-0.2) k/uL PT 10.2 (9.0-12.0) sec INR 1.0 (<1.2) APTT 22.4 (22.0-30.0) sec D-Dimer 0.89 H (<0.60) mg/L FEU Sodium (137-145) mmol/L Potassium (3.5-5.1) mmol/L Chloride (98-107) mmol/L Carbon Dioxide (22-30) mmol/L Anion Gap mmol/L BUN (7-17) mg/dL Creatinine (0.52-1.04) mg/dL Est GFR (MDRD) Af Amer (>60 ml/min/1.73 sqM) Est GFR (MDRD) Non-Af (>60 ml/min/1.73 sqM) Glucose (74-99) mg/dL Calcium (8.4-10.2) mg/dL Magnesium (1.6-2.3) mg/dL Total Bilirubin (0.2-1.3) mg/dL AST (14-36) U/L ALT (9-52) U/L Alkaline Phosphatase (38-126) U/L Total Creatine Kinase (30-135) U/L CK-MB (CK-2) (0.0-2.4) ng/mL CK-MB (CK-2) Rel Index Troponin I (0.000-0.034) ng/mL NT-Pro-B Natriuret Pep 43 pg/mL Total Protein (6.3-8.2) g/dL Albumin (3.5-5.0) g/dL - EKG Data -: EKG Interpreted by Al EKG shows normal: sinus rhythm, axis, intervals, QRS complexes, ST-T waves Rate: normal (EKG shows normal sinus rhythm a 95 appear of 01 30 QRS 92 QT since QTC of 362/[address]-T wave changes.) - Radiology Data Radiology results: report reviewed (Review the imaging shows no acute findings.) , image reviewed Disposition Clinical Impression: Tracheobronchitis, Bronchospasm, Cough in adult Disposition: HOME SELF-CARE Condition: Good Instructions: Acute Bronchitis (ED), Antitussives (By mouth) Prescriptions: Azithromycin [Zithromax Z-pack] 250 mg PO DIRECTED #6 tab Benzonatate [Tessalon Perles] 100 mg PO TID PRN #20 capsule PRN Reason: Cough predniSONE 20 mg PO BID #10 tab Referrals: Mliagros Catalan MD [Primary Care Provider] - 1-2 days Yoav Santiago MD [STAFF PHYSICIAN] - 1-2 days
[2017-07-15] MEDS: IPRATROPIUM-ALBUTEROL 3 ML NEB INHALATION STA ×2 (12:00→12:02)
[2017-07-15 12:38] LABS: Basophils # (A) 0.1 k/uL (0-0.2); Basophils % (A) 0 %; CH 33.9; CHCM 34.7; Eosinophils # (A) 0.2 k/uL (0-0.7); Eosinophils % (A) 1 %; HCT 42.4 % (34.0-46.0); HDW 2.28; HGB 13.6 gm/dL (11.4-16.0); Luc # (Auto) 0.18; Luc % (Auto) 1; Lymphocytes % (A) 23 %; MCH 31.5 pg (25.0-35.0); MCHC 32.1 g/dL (31.0-37.0); MCV 98.2 fL (80.0-100.0); Mean Platelet Volume 7.8; Monocytes # (A) 0.5 k/uL (0-1.0); Monocytes % (A) 4 %; Neutrophils % (A) 70 %; RBC 4.31 m/uL (3.80-5.40); RDW 13.6 % (11.5-15.5); WBC 12.9 k/uL (3.8-10.6); WBC (Perox) 13.13
[2017-07-15 12:48] LABS: ALT 34 U/L (9-52); AST 18 U/L (14-36); Alkaline Phosphatase 81 U/L (38-126); Anion Gap 11 mmol/L; Blood Urea Nitrogen 14 mg/dL (7-17); Calcium 9.6 mg/dL (8.4-10.2); Carbon Dioxide 17 mmol/L (22-30); Chloride 110 mmol/L (98-107); Glucose 82 mg/dL (74-99); Magnesium 2.1 mg/dL (1.6-2.3); Non-African American GFR(MDRD) >60 (>60 ml/min/1.73 sqM); Potassium 4.2 mmol/L (3.5-5.1); Sodium 138 mmol/L (137-145); Total Bilirubin 0.4 mg/dL (0.2-1.3); Total Protein 6.4 g/dL (6.3-8.2)
[2017-07-15 12:51] LABS: Partial Thromboplastin Time 22.4 sec (22.0-30.0); Prothrombin Time 10.2 sec (9.0-12.0)
[2017-07-15 12:57] LABS: Creatine Kinase 118 U/L (30-135)
--- NOTE | 2017-07-15 12:59 | XR ---
EXAMINATION TYPE: XR chest 2V DATE OF EXAM: 07/15/2017 HISTORY: difficulty breathing. REFERENCE: Previous study dated 06/07/2017. FINDINGS: The lungs are clear. Pleural space are clear. The heart is not enlarged. IMPRESSION: NO ACUTE INTRATHORACIC ABNORMALITY.
[2017-07-15 13:10] LABS: Creatine Kinase MB 2.2 ng/mL (0.0-2.4); Troponin I <0.012 ng/mL (0.000-0.034)
[2017-07-15 13:46] VITALS: RESP 16
[2017-07-15 14:32] VITALS: BP 128/81; PULSE 95; TEMP 98
== END 2017-07-15 14:31 | disposition home or self-care (01) ==
LOC: EC 10:37
DX: J40 Bronchitis, not specified as acute or chronic (principal); J98.01 Acute bronchospasm; F90.9 Attention-deficit hyperactivity disorder, unspecified type; Z87.891 Personal history of nicotine dependence; Z79.51 Long term (current) use of inhaled steroids; Z79.899 Other long term (current) drug therapy; Z88.0 Allergy status to penicillin
CPT/HCPCS: 99284; 96374; 36415; 94640; 93005; 85379; 83880; 80053; 82550; 82553; 83735; 84484; 85025; 85610; 85730; 87040; 71020; J2930

== ENCOUNTER → 2019-06-13 | Outpatient (CLI) | payer OTHER ==
--- NOTE | 2019-06-13 16:21 | XR ---
EXAMINATION TYPE: XR chest 2V DATE OF EXAM: 06/13/2019 COMPARISON: Prior chest x-ray 07/15/[address] 02 September 2017 HISTORY: Cough and shortness of breath TECHNIQUE: Frontal and lateral views of the chest are obtained. FINDINGS: There is no focal air space opacity, pleural effusion, or pneumothorax seen. The cardiac silhouette size is within normal limits. Some minimal pleural thickening is thought to be stable al jeancarlos the lateral chest pol[place], patient with prior rib fractures. The osseous structures are intact. IMPRESSION: No acute cardiopulmonary process.
== END | disposition home or self-care (01) ==
LOC: RADXRYALE 14:01
PROVIDERS: ATTEND Internal Medicine Sleep Medicine
DX: R06.02 Shortness of breath (principal)
CPT/HCPCS: 71046

== ENCOUNTER → 2020-07-07 | Outpatient (CLI) | payer OTHER | END | disposition home or self-care (01) | LOC: LABWHC1 10:06 | PROVIDERS: ATTEND Family Medicine | DX: J98.01 Acute bronchospasm (principal); J06.9 Acute upper respiratory infection, unspecified | CPT/HCPCS: U0003; C9803 ==

== ENCOUNTER → 2020-10-21 | Outpatient (CLI) | payer OTHER | END | disposition home or self-care (01) | LOC: LABWHC1 14:27 | PROVIDERS: ATTEND Family Medicine | DX: Z20.822 Contact with and (suspected) exposure to COVID-19 (principal) | CPT/HCPCS: U0003; C9803; U0005 ==

== ENCOUNTER → 2022-01-13 | Outpatient (CLI) | payer OTHER ==
--- NOTE | 2022-01-13 14:33 | XR ---
EXAMINATION TYPE: XR chest 2V DATE OF EXAM: 01/13/2022 COMPARISON: 06/13/2019 TECHNIQUE: PA and lateral views submitted. HISTORY: Shortness of breath FINDINGS: The lungs are clear and there is no pneumothorax, pleural effusion, or focal pneumonia. Biapical pl eural thickening. Heart size normal. No overt failure. Appears to be deformity of the upper left late ral rib cage compatible with remote fracture similar to prior exam. IMPRESSION: 1. No acute process.
--- NOTE | 2022-01-13 14:37 | XR ---
EXAMINATION TYPE: XR ribs bilateral DATE OF EXAM: 01/13/2022 COMPARISON: NONE HISTORY: Pain TECHNIQUE: 4 views of the right rib cage and 4 views of the left rib cage are submitted FINDINGS: There is a chronic appearing deformity of the left fourth rib is stable from prior exams co mpatible with remote rib fracture. Appears to be a subtle deformity involving the left 10th rib later ally also more typical of remote fracture. There is a deformity of the right anterolateral fifth and sixth ribs suggestive of prior fracture. No acute displaced rib fracture seen. IMPRESSION: 1. No acute displaced rib fracture. Bilateral chronic rib deformities suggest remote fractures.
== END | disposition home or self-care (01) ==
LOC: RADXRYALE 13:04
PROVIDERS: ATTEND Pediatrics
DX: J45.909 Unspecified asthma, uncomplicated (principal); R07.81 Pleurodynia
CPT/HCPCS: 71046; 71110

== ENCOUNTER → 2022-04-25 | Outpatient (CLI) | payer OTHER ==
--- NOTE | 2022-04-25 19:29 | MR ---
EXAMINATION TYPE: MR knee LT wo con DATE OF EXAM: 04/25/2022 COMPARISON: None HISTORY: Right knee pain, medial aspect, fell down stairs 3 mos ago. TECHNIQUE: Multiplanar, multisequence imaging of the left knee is performed without IV contrast. FINDINGS: MEDIAL MENISCUS: Increased signal in the posterior horn the medial meniscus does not extend to the ar ticular surface may be degenerative LATERAL MENISCUS: Anterior and posterior horns are intact without tear. CRUCIATE LIGAMENTS: The anterior and posterior cruciate ligaments are intact and unremarkable. COLLATERAL LIGAMENTS: Medial collateral ligament shows abnormal increased intrasubstance signal consi stent with partial tear, some surrounding increased T2 signal noted. Some mild increased signal invol ving the popliteus tendon origin suggests strain or partial tear EXTENSOR MECHANISM: Visualized quadriceps and patellar tendons are intact. EFFUSION: Small joint effusion POPLITEAL CYST: Small Valero's cyst noted. TRICOMPARTMENT SPACES: Maintained, mild spurring at the medial femoral condyle CARTILAGE: Intact BONE MARROW SIGNAL: No focal abnormal marrow signal is appreciated. OTHER: Subcutaneous edema changes are present anterior to the insertion of the patellar tendon, with in the subcutaneous fat IMPRESSION: Findings consistent with medial collateral ligament sprain, grade 1 to grade 2 and additional finding s above
== END | disposition home or self-care (01) ==
LOC: RADMRIMAIN 17:25
PROVIDERS: ATTEND Orthopaedic Surgery
DX: S83.412A Sprain of medial collateral ligament of left knee, initial encounter (principal); X58.XXXA Exposure to other specified factors, initial encounter

== ENCOUNTER → 2024-01-07 | Outpatient (CLI) | payer OTHER ==
--- NOTE | 2024-01-07 12:17 | XR ---
EXAMINATION TYPE: XR wrist complete LT DATE OF EXAM: 01/07/2024 12:03 PM CLINICAL INDICATION:Female, 38 years old with history of [id number] LT WRIST PAIN; [facility] COMPARISON: None TECHNIQUE: XR wrist complete LT; examined in the Frontal, navicular, lateral, and oblique. FINDINGS: No acute osseous pathology, joint dislocation, or joint effusion. No evidence of any soft tissue swelling is seen. IMPRESSION: No acute osseous pathology.
== END | disposition home or self-care (01) ==
LOC: RADXRYALE 11:05
PROVIDERS: ATTEND Pediatrics
DX: M25.532 Pain in left wrist (principal)